=== PATIENT | female | born 1970 | race Two or more races ===

== ENCOUNTER 2017-06-03 13:32 | Inpatient (IN) | payer OTHER ==
[2017-06-03 15:33] VITALS: BMI 24.2
--- NOTE | 2017-06-03 18:04 | HP ---
COWS - Scale Resting Pulse: 1= [place] 81-100 Sweatin=Flushed/Facial Moisture Restless Observation: 5= Unable to Sit Still Pupil Size: 2= Moderately Dilated Bone or Joint Aches: 1= Mild Discomfort Runny Nose/ Eye Tearin= Nasal Congestion GI Upset > 30mins: 1= Stomach Cramp Tremor Observation: 1= Tremor [place], Not Seen Yawning Observation: 1= 1-2x During Session Anxiety or Irritability: 1=Feels Anxious/Irritable Goose Flesh Skin: 0=Smooth Skin COWS Score: 16 Admission ROS BHS - HPI Chief Complaint: "I need to detox from Heroin, am just so tired of it" Allergies/Adverse Reactions: Allergies Allergy/AdvReac Type Severity Reaction Status Date / Time Penicillins Allergy Severe Swelling Verified 06/03/17 15:33 History of Present Illness: 46 y/o female with a four year history of heroin abuse presents here for detox. Pt states she started to use four years ago due to separation from her .Pt states she used to snort, then shoots it and now sniffs heroin. Denies any sober period. Admits to prior suicidal attempt, denies current ideation or attempt. Hx of HTN, saline breast enlargement (1992), gall bladder removal (1999). Pt appears somnolent but arouses to questions asked, admits to using heroin while waiting. Exam Limitations: Clinical Condition (admits to siffing cocaine while waiting to be seen), Intoxication - Ebola screening Have you traveled outside of the country in the last 21 days: No (N) Have you had contact with anyone from an Ebola affected area: No Have you been sick,other than usual withdrawal symptoms: No Do you have a fever: No - Review of Systems Constitutional: Chills, Changes in sleep EENT: reports: Blurred Vision, Other (dry eyes) Respiratory: reports: No Symptoms reported Cardiac: reports: No Symptoms Reported GI: reports: Abdominal Distended (Non tender) : reports: No Symptoms Reported Musculoskeletal: reports: No Symptoms Reported Integumentary: reports: Other (track arana to L hand, L Ac - non infected) Neuro: reports: No Symptoms reported Endocrine: reports: No Symptoms Reported Hematology: reports: No Symptoms Reported Psychiatric: reports: Depressed Other Systems: Reviewed and Negative Patient History - Patient Medical History Hx Anemia: No Hx Asthma: Yes Hx Chronic Obstructive Pulmonary Disease (COPD): No Hx Cancer: No Hx Cardiac Disorders: No Hx Congestive Heart Failure: No Hx Hypertension: Yes (not on meds.) Hx Hypercholesterolemia: No Hx Pacemaker: No HX Cerebrovascular Accident: No Hx Seizures: No Hx Dementia: No Hx Diabetes: No Hx Gastrointestinal Disorders: No Hx Liver Disease: No Hx Genitourinary Disorders: No Hx Sexually Transmitted Disorders: No Hx Renal Disease (ESRD): No Hx Thyroid Disease: No Hx Human Immunodeficiency Virus (HIV): No Hx Hepatitis C: No Hx Depression: Yes Hx Suicide Attempt: Yes (Tried to overdose in 2014) Hx Bipolar Disorder: No Hx Schizophrenia: No - Patient Surgical History Past Surgical History: Yes Hx Neurologic Surgery: No Hx Cataract Extraction: No Hx Cardiac Surgery: No Hx Lung Surgery: No Hx Breast Surgery: Yes (breast augmentation) Hx Breast Biopsy: No Hx Abdominal Surgery: No Hx Appendectomy: No Hx Cholecystectomy: Yes Hx Genitourinary Surgery: No Hx Section: No Hx Orthopedic Surgery: No Hx Hysterectomy: No Anesthesia Reaction: No - PPD History Previous Implant?: Yes Documented Results: Negative w/proof Implanted On Prior R Admission?: Yes Date: 11/04/15 PPD to be Administered?: Yes - Reproductive History Last Menstrual Period: 04/09/17 Patient : No - Smoking Cessation Smoking history: Current every day smoker Have you smoked in the past 12 months: Yes Aproximately how many cigarettes per day: 5 Hx Chewing Tobacco Use: No Initiated information on smoking cessation: Yes 'Breaking Loose' booklet given: 06/03/17 - Substance & Tx. History Hx Alcohol Use: Yes (social drinker) Hx Substance Use: Yes - Substances Abused Heroin Route: Inhalation Frequency: Daily Amount used: 10 bags Age of first use: 42 Date of Last Use: 06/03/17 Cocaine Route: Inhalation Frequency: 3-6 times per week Amount used: 1 gram Age of first use: 19 Date of Last Use: 05/31/17 Alprazolam (Xanax) Route: Oral Frequency: Daily Amount used: 4 or 5 tabs Age of first use: 45 Date of Last Use: 06/02/17 Family Disease History - Family Disease History Family Disease History: Diabetes: Father, Respiratory: Grandparent (asthma), Mother (asthma), Son (asthma) Admission Physical Exam BHS - Vital Signs Vital Signs: Vital Signs - 24 hr 06/03/17 15:31 Temperature 97 F L Pulse Rate 82 Respiratory 20 Rate Blood Pressure 132/84 - Physical General Appearance: Yes: Mild Distress, Moderate Distress, Other (lethargic) HEENTM: Yes: Nasal Congestion Respiratory: Yes: Chest Non-Tender, Lungs Clear, No Accessory Muscle Use Neck: Yes: Within Normal Limits Breast: Yes: Breast Exam Deferred Cardiology: Yes: Regular Rate, S1, S2 Abdominal: Yes: Non Tender, Soft, Distended Genitourinary: Yes: Within Normal Limits Back: Yes: Within Normal Limits Musculoskeletal: Yes: Within Normal Limits Extremities: Yes: Normal Capillary Refill Neurological: Yes: Within Normal Limits Integumentary: Yes: Normal Color, Dry, Warm Lymphatic: Yes: Within Normal Limits - Diagnostic (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 Current Visit: Yes Status: Acute (2) Sedative hypnotic or anxiolytic dependence Current Visit: Yes Status: Acute (3) Opioid dependence with uncomplicated intoxication Current Visit: Yes Status: Acute (4) Nicotine dependence Current Visit: No Status: Chronic Qualifiers: Nicotine product type: cigarettes Substance use status: uncomplicated Qualified Code(s): F17.210 - Nicotine dependence, cigarettes, uncomplicated (5) Cocaine dependence Current Visit: Yes Status: Acute (6) Asthma Current Visit: No Status: Chronic Qualifiers: Asthma severity: mild persistent Asthma complication type: with status asthmaticus Qualified Code(s): J45.32 - Mild persistent asthma with status asthmaticus Cleared for Admission [facility] - Detox or Rehab [facility] Level of Care: Medically Managed Detox Regimen/Protocol: Methadone [facility] Breath Alcohol Content Breath Alcohol Content: 0 Urine Pregancy Test - Result Urine Test Results: Negative- NO Line Present Urine Drug Screen - Results Drug Screen Negative: No Urine Drug Screen Results: ALEXANDER-Cocaine, OPI-Opiates, AMP-Amphetamines, MET- Methamphetamine, BZO-Benzodiazepines, OXY-Oxycodone
[2017-06-03] MEDS ORDERED: MAGNESIUM HYDROX 2400MG/30ML ORAL SUSPENSION 30 ML CUP PO PRN (18:46)
[2017-06-03] MEDS ORDERED: hydrOXYzine PAMOATE 50 MG CAPSULE (FP) PO PRN (18:46)
[2017-06-03] MEDS ORDERED: guaiFENesin/D-METHORPHAN HB 10 ML UNIT-DOSE CUPS PO PRN (18:46)
[2017-06-03] MEDS ORDERED: P-EPHED 60MG/TRIPROLIDI 2.5MG TABLET PO PRN (18:46)
[2017-06-03] MEDS ORDERED: IBUPROFEN 400 MG TABLET (FP) PO PRN (18:46)
[2017-06-03] MEDS ORDERED: MAGNESIUM CITRATE 300 ML BOTTLE PO PRN (18:46)
[2017-06-03] MEDS ORDERED: NICOTINE POLACRILEX 2 MG GUM BUC PRN (18:46)
[2017-06-03] MEDS ORDERED: MAG HYDROX/AL HYDROX/SIMETH 30 ML UNIT-DOSE CUP PO PRN (18:46)
[2017-06-03] MEDS ORDERED: METHADONE HCL 10 MG TABLET (FOR DETOX USE ONLY) PO ONE ×2 (18:46→23:00)
[2017-06-03] MEDS ORDERED: MENTHOL/PHENOL 1 EACH UD MM PRN (18:46)
[2017-06-03] MEDS ORDERED: LOPERAMIDE HCL 2 MG CAPSULE PO PRN (18:46)
[2017-06-03] MEDS ORDERED: ACETAMINOPHEN 325 MG TABLET (FP) PO PRN (18:46)
[2017-06-03] MEDS: diazePAM 5 MG TABLET PO PRN (19:59)
[2017-06-03] MEDS: NICOTINE 14 MG/24 HOURS TOPICAL PATCH TD SCH (20:00)
[2017-06-03] MEDS: THIAMINE HCL 100 MG TABLET (FP) PO SCH (22:50)
[2017-06-04] MEDS: diazePAM 5 MG TABLET PO PRN ×3 (01:24→22:54)
[2017-06-04 02:06] LABS: URINE APPEARANCE SLCLOUDY; URINE BILIRUBIN NEGATIVE (NEGATIVE); URINE BLOOD NEGATIVE (NEGATIVE); URINE COLOR DKYELLOW; URINE GLUCOSE (UA) NEGATIVE (NEGATIVE); URINE KETONE NEGATIVE (NEGATIVE); URINE LEUK ESTERASE TRACE (NEGATIVE); URINE NITRITE NEGATIVE (NEGATIVE); URINE PROTEIN NEGATIVE (NEGATIVE)
[2017-06-04 02:23] LABS: CALCIUM OXALATE CRYSTALS MODERATE /hpf (NONE SEEN); EPI CELLS MODERATE /HPF (FEW); URINE BACTERIA MODERATE /hpf (NONE SEEN); URINE HYALINE CAST 1 /lpf; URINE MUCUS MODERATE
[2017-06-04 09:57] LABS: HEMATOCRIT 42.4 % (32.4-45.2); HEMOGLOBIN 13.5 GM/dL (10.7-15.3); MCH 27.8 pg (25.7-33.7); MCHC 31.8 g/dl (32.0-36.0); MEAN CELL VOLUME 87.3 fl (80-96); MEAN PLT VOLUME 8.8 fl (7.5-11.1); PLATELET COUNT 244 K/MM3 (134-434); RBC 4.85 M/mm3 (3.60-5.2); RDW 15.7 % (11.6-15.6); WHITE BLOOD COUNT 4.9 K/mm3 (4.0-10.0)
[2017-06-04] MEDS ORDERED: METHADONE HCL 10 MG TABLET (FOR DETOX USE ONLY) PO ONE (10:00)
[2017-06-04 10:03] LABS: ALBUMIN 3.2 g/dl (3.4-5.0); ANION GAP 3 (8-16); BLOOD UREA NITROGEN 15 mg/dL (7-18); CALCIUM 8.4 mg/dL (8.5-10.1); CHLORIDE 103 mmol/L (98-107); CO2 34 mmol/L (21-32); CREATININE 0.8 mg/dL (0.55-1.02); GLUCOSE,RANDOM 106 mg/dL (74-106); POTASSIUM 4.2 mmol/L (3.5-5.1); SGOT/AST 80 U/L (15-37); SGPT/ALT 124 U/L (12-78); SODIUM 140 mmol/L (136-145); TOT PROT 6.6 g/dl (6.4-8.2)
[2017-06-04 10:05] LABS: ALK PHOS 167 U/L (45-117); BILIRUBIN,TOTAL 0.5 mg/dL (0.2-1.0)
--- NOTE | 2017-06-04 10:31 | PN ---
BHS COWS - Scale Resting Pulse: 0= [place] 80 or Below Sweatin= Chills/Flushing Restless Observation: 1= Difficult to Sit Still Pupil Size: 0= Normal to Room Light Bone or Joint Aches: 2= Severe Diffuse Aches Runny Nose/ Eye Tearin= Nasal Congestion GI Upset > 30mins: 1= Stomach Cramp Tremor Observation of Outstretched Hands: 2= Slight Tremor Visible Yawning Observation: 2= >3x During Session Anxiety or Irritability: 2=Irritable/Anxious Goose Flesh Skin: 3=Piloerection COWS Score: 15 BHS Progress Note (SOAP) Subjective: joint aches stuffy nose GI distress anxiety tremor restlessness irritable Objective: 06/04/17 10:29 Vital Signs Temperature 96.8 F L 06/04/17 06:00 Pulse Rate 60 06/04/17 06:00 Respiratory Rate 18 06/04/17 06:00 Blood Pressure 120/71 06/04/17 06:00 O2 Sat by Pulse Oximetry (%) Laboratory Last Values WBC 4.9 K/mm3 (4.0-10.0) 06/04/17 07:20 RBC 4.85 M/mm3 (3.60-5.2) 06/04/17 07:20 Hgb 13.5 GM/dL (10.7-15.3) D 06/04/17 07:20 Hct 42.4 % (32.4-45.2) 06/04/17 07:20 MCV 87.3 fl (80-96) 06/04/17 07:20 MCH 27.8 pg (25.7-33.7) 06/04/17 07:20 MCHC 31.8 g/dl (32.0-36.0) L 06/04/17 07:20 RDW 15.7 % (11.6-15.6) H 06/04/17 07:20 Plt Count 244 K/MM3 (134-434) 06/04/17 07:20 MPV 8.8 fl (7.5-11.1) 06/04/17 07:20 Sodium 140 mmol/L (136-145) 06/04/17 07:20 Potassium 4.2 mmol/L (3.5-5.1) 06/04/17 07:20 Chloride 103 mmol/L (98-107) 06/04/17 07:20 Carbon Dioxide 34 mmol/L (21-32) H 06/04/17 07:20 Anion Gap 3 (8-16) L 06/04/17 07:20 BUN 15 mg/dL (7-18) 06/04/17 07:20 Creatinine 0.8 mg/dL (0.55-1.02) 06/04/17 07:20 Creat Clearance w eGFR > 60 (>60) 06/04/17 07:20 Random Glucose 106 mg/dL (74-106) 06/04/17 07:20 Calcium 8.4 mg/dL (8.5-10.1) L 06/04/17 07:20 Total Bilirubin 0.5 mg/dL (0.2-1.0) D 06/04/17 07:20 AST 80 U/L (15-37) H 06/04/17 07:20 ALT 124 U/L (12-78) H 06/04/17 07:20 Alkaline Phosphatase 167 U/L (45-117) H 06/04/17 07:20 Total Protein 6.6 g/dl (6.4-8.2) 06/04/17 07:20 Albumin 3.2 g/dl (3.4-5.0) L 06/04/17 07:20 Urine Color Dkyellow 06/03/17 22:39 Urine Appearance Slcloudy 06/03/17 22:39 Urine pH 5.0 (5.0-8.0) 06/03/17 22:39 Ur Specific [place] 1.028 (1.001-1.035) 06/03/17 22:39 Urine Protein Negative (NEGATIVE) 06/03/17 22:39 Urine Glucose (UA) Negative (NEGATIVE) 06/03/17 22:39 Urine Ketones Negative (NEGATIVE) 06/03/17 22:39 Urine Blood Negative (NEGATIVE) 06/03/17 22:39 Urine Nitrite Negative (NEGATIVE) 06/03/17 22:39 Urine Bilirubin Negative (NEGATIVE) 06/03/17 22:39 Urine Urobilinogen 2.0 mg/dL (0.2-1.0) H 06/03/17 22:39 Ur Leukocyte Esterase Trace (NEGATIVE) 06/03/17 22:39 Urine WBC (Auto) 4 /hpf (3-5) 06/03/17 22:39 Urine RBC (Auto) 2 /hpf (0-3) 06/03/17 22:39 Ur Epithelial Cells Moderate /HPF (FEW) 06/03/17 22:39 Calcium Oxalate Crystal Moderate /hpf (NONE SEEN) 06/03/17 22:39 Urine Bacteria Moderate /hpf (NONE SEEN) 06/03/17 22:39 Hyaline Casts 1 /lpf 06/03/17 22:39 Urine Mucus Moderate 06/03/17 22:39 HIV 1&2 Antibody Screen Negative 06/04/17 07:20 HIV P24 Antigen Negative 06/04/17 07:20 lab noted Assessment: 06/04/17 10:31 withdrawal sx Plan: continue detox
--- NOTE | 2017-06-04 11:03 | CONSULT ---
[facility] Psychiatric Consult - Data Date of interview: 06/04/17 Admission source: Self-referred Identifying data: Ms Meier is a 46 years old female, mother of 5 children, unemployed on food stamp, homeless seeking detox treatment for heroin, cocaine and xanax Substance Abuse History: Reports history of heroin, cocaine and xanax use. Refer to addiction counselor's note for further information Medical History: Significant for bronchial asthma, hypertension and history of surgery for breast implant and removal of galldbladder. Smokes 5 cigarettes daily Psychiatric History: Patient is a poor historian and inconsistent in providing informatio. Told assembly instructions writer that she was diagnosed with Schizophrenia 2 years ago while incarcerated at [facility]. Reports she was on a mental wards there. Claims she was prescribed medicaton but has no recollection of the name. Reports that she stopped taking medication soon after release from [facility]. During a previous admission in this facility in October 2015, she told the psychiatrist that she was diagnosed with Schizoprenia 2 years ago(2013) and had one psychiatric admission to [facility]. Told assembly instructions writer about a history of suicidal attempt by taking pills in 2014. At present reports feeling depressed and sleeping poorly Physical/Sexual Abuse/Trauma History: Denies history of emotional, physical or sexual abuse as well as DV relationship Additional Comment: Reports history of a few arrests including 2 felony convictions. Denies being on parole/probation at present Mental Status Exam - Mental Status Exam Alert and Oriented to: Place, Person Cognitive Function: Fair Patient Appearance: Well Groomed Mood: Depressed Affect: Appropriate Patient Behavior: Cooperative Speech Pattern: Clear Voice Loudness: Normal Thought Process: Intact, Goal Oriented Thought Disorder: Not Present Hallucinations: Denies Suicidal Ideation: Denies Homicidal Ideation: Denies Insight/Judgement: Poor Sleep: Poorly Appetite: Fair Muscle strength/Tone: Normal Gait/Station: Normal Psychiatric Findings - Problem List ([place] 1, 2,3) (1) Schizophrenia Current Visit: No Status: Chronic (2) Substance induced mood disorder Current Visit: Yes Status: Acute (3) Substance-induced sleep disorder Current Visit: Yes Status: Acute (4) Opioid dependence with uncomplicated intoxication Current Visit: Yes Status: Acute (5) Cocaine dependence Current Visit: Yes Status: Acute (6) Sedative hypnotic or anxiolytic dependence Current Visit: Yes Status: Acute (7) Nicotine dependence Current Visit: No Status: Chronic Qualifiers: Nicotine product type: cigarettes Substance use status: uncomplicated Qualified Code(s): F17.210 - Nicotine dependence, cigarettes, uncomplicated (8) Asthma Current Visit: No Status: Chronic Qualifiers: Asthma severity: mild persistent Asthma complication type: with status asthmaticus (9) HTN (hypertension) Current Visit: Yes Status: Acute - Initial Treatment Plan Initial Treatment Plan: 1) Start Seroquel 100 mg po HS. Benefit vs Risks of medication discussed with patient and he agreed to try it. 2) Continue inpatient detoxification
[2017-06-04] MEDS: PRENATAL VITAMINS W/ FOLIC ACID TABLET (FP) PO SCH (11:08)
[2017-06-04] MEDS: NICOTINE 14 MG/24 HOURS TOPICAL PATCH TD SCH (11:09)
--- NOTE | 2017-06-04 18:46 | EKG ---
Test Reason : Blood Pressure : / mmHG Vent. Rate : 075 BPM Atrial Rate : 075 BPM P-R Int : 136 ms QRS Dur : 082 ms QT Int : 404 ms P-R-T Axes : 034 074 058 degrees QTc Int : 451 ms NORMAL SINUS RHYTHM NORMAL ECG NO PREVIOUS ECGS AVAILABLE Confirmed by MD CHRISTELLE, MARIA DEL CARMEN ([id number]) on 06/04/2017 6:46:28 PM Referred By: Confirmed By:MARIA DEL CARMEN BOURGEOIS MD
[2017-06-04] MEDS: QUEtiapine FUMARATE 100 MG TABLET (FP) PO SCH (22:54)
[2017-06-04] MEDS: THIAMINE HCL 100 MG TABLET (FP) PO SCH (22:54)
--- NOTE | 2017-06-05 09:39 | PN ---
BHS COWS - Scale Resting Pulse: 0= [place] 80 or Below Sweatin= Chills/Flushing Restless Observation: 3= Extraneous Movement Pupil Size: 0= Normal to Room Light Bone or Joint Aches: 2= Severe Diffuse Aches Runny Nose/ Eye Tearin= Nasal Congestion GI Upset > 30mins: 1= Stomach Cramp Tremor Observation of Outstretched Hands: 2= Slight Tremor Visible Yawning Observation: 0= None Anxiety or Irritability: 2=Irritable/Anxious Goose Flesh Skin: 0=Smooth Skin COWS Score: 12 BHS Progress Note (SOAP) Subjective: sweat tremor restlessness irritable mild GI upset Objective: 06/05/17 09:38 Vital Signs Temperature 97.0 F L 06/05/17 06:27 Pulse Rate 60 06/05/17 06:27 Respiratory Rate 16 06/05/17 06:27 Blood Pressure 90/68 06/05/17 06:27 O2 Sat by Pulse Oximetry (%) Laboratory Last Values WBC 4.9 K/mm3 (4.0-10.0) 06/04/17 07:20 RBC 4.85 M/mm3 (3.60-5.2) 06/04/17 07:20 Hgb 13.5 GM/dL (10.7-15.3) D 06/04/17 07:20 Hct 42.4 % (32.4-45.2) 06/04/17 07:20 MCV 87.3 fl (80-96) 06/04/17 07:20 MCH 27.8 pg (25.7-33.7) 06/04/17 07:20 MCHC 31.8 g/dl (32.0-36.0) L 06/04/17 07:20 RDW 15.7 % (11.6-15.6) H 06/04/17 07:20 Plt Count 244 K/MM3 (134-434) 06/04/17 07:20 MPV 8.8 fl (7.5-11.1) 06/04/17 07:20 Sodium 140 mmol/L (136-145) 06/04/17 07:20 Potassium 4.2 mmol/L (3.5-5.1) 06/04/17 07:20 Chloride 103 mmol/L (98-107) 06/04/17 07:20 Carbon Dioxide 34 mmol/L (21-32) H 06/04/17 07:20 Anion Gap 3 (8-16) L 06/04/17 07:20 BUN 15 mg/dL (7-18) 06/04/17 07:20 Creatinine 0.8 mg/dL (0.55-1.02) 06/04/17 07:20 Creat Clearance w eGFR > 60 (>60) 06/04/17 07:20 Random Glucose 106 mg/dL (74-106) 06/04/17 07:20 Calcium 8.4 mg/dL (8.5-10.1) L 06/04/17 07:20 Total Bilirubin 0.5 mg/dL (0.2-1.0) D 06/04/17 07:20 AST 80 U/L (15-37) H 06/04/17 07:20 ALT 124 U/L (12-78) H 06/04/17 07:20 Alkaline Phosphatase 167 U/L (45-117) H 06/04/17 07:20 Total Protein 6.6 g/dl (6.4-8.2) 06/04/17 07:20 Albumin 3.2 g/dl (3.4-5.0) L 06/04/17 07:20 Urine Color Dkyellow 06/03/17 22:39 Urine Appearance Slcloudy 06/03/17 22:39 Urine pH 5.0 (5.0-8.0) 06/03/17 22:39 Ur Specific [place] 1.028 (1.001-1.035) 06/03/17 22:39 Urine Protein Negative (NEGATIVE) 06/03/17 22:39 Urine Glucose (UA) Negative (NEGATIVE) 06/03/17 22:39 Urine Ketones Negative (NEGATIVE) 06/03/17 22:39 Urine Blood Negative (NEGATIVE) 06/03/17 22:39 Urine Nitrite Negative (NEGATIVE) 06/03/17 22:39 Urine Bilirubin Negative (NEGATIVE) 06/03/17 22:39 Urine Urobilinogen 2.0 mg/dL (0.2-1.0) H 06/03/17 22:39 Ur Leukocyte Esterase Trace (NEGATIVE) 06/03/17 22:39 Urine WBC (Auto) 4 /hpf (3-5) 06/03/17 22:39 Urine RBC (Auto) 2 /hpf (0-3) 06/03/17 22:39 Ur Epithelial Cells Moderate /HPF (FEW) 06/03/17 22:39 Calcium Oxalate Crystal Moderate /hpf (NONE SEEN) 06/03/17 22:39 Urine Bacteria Moderate /hpf (NONE SEEN) 06/03/17 22:39 Hyaline Casts 1 /lpf 06/03/17 22:39 Urine Mucus Moderate 06/03/17 22:39 RPR Titer Nonreactive (NONREACTIVE) 06/04/17 07:20 HIV 1&2 Antibody Screen Negative 06/04/17 07:20 HIV P24 Antigen Negative 06/04/17 07:20 lab noted Assessment: 06/05/17 09:39 withdrawal sx Plan: continue detox
[2017-06-05] MEDS ORDERED: METHADONE HCL 5 MG TABLET (FOR DETOX USE ONLY) PO ONE (10:00)
[2017-06-05] MEDS: PRENATAL VITAMINS W/ FOLIC ACID TABLET (FP) PO SCH (10:58)
[2017-06-05] MEDS: diazePAM 5 MG TABLET PO PRN ×3 (10:58→22:26)
[2017-06-05] MEDS: NICOTINE 14 MG/24 HOURS TOPICAL PATCH TD SCH (10:59)
[2017-06-05] MEDS: THIAMINE HCL 100 MG TABLET (FP) PO SCH (22:26)
[2017-06-05] MEDS: QUEtiapine FUMARATE 100 MG TABLET (FP) PO SCH (22:26)
[2017-06-06] MEDS ORDERED: METHADONE HCL 5 MG TABLET (FOR DETOX USE ONLY) PO ONE (10:00)
[2017-06-06 10:09] VITALS: BP 126/76; PULSE 74; TEMP 96.4
[2017-06-06] MEDS: PRENATAL VITAMINS W/ FOLIC ACID TABLET (FP) PO SCH (10:51)
[2017-06-06] MEDS: diazePAM 5 MG TABLET PO PRN (10:51)
[2017-06-06] MEDS: NICOTINE 14 MG/24 HOURS TOPICAL PATCH TD SCH (10:53)
--- NOTE | 2017-06-06 12:39 | DS ---
[facility] Detox Discharge Summary Admission Date: 06/03/17 Discharge Date: 06/06/17 - History Present History: Alcohol Dependence, Sedative Dependence Additional Comments: patient insists to terminate detox regimen alert oriented x 3 denies pain denies suicidal homocidal ideation encourage to attend community support meetings for the benefits of sobriety - Physical Exam Results Vital Signs: Vital Signs Temperature 96.4 F L 06/06/17 10:09 Pulse Rate 74 06/06/17 10:09 Respiratory Rate 18 06/06/17 10:09 Blood Pressure 126/76 06/06/17 10:09 O2 Sat by Pulse Oximetry (%) Pertinent Admission Physical Exam Findings: withdrawal sx Laboratory Last Values WBC 4.9 K/mm3 (4.0-10.0) 06/04/17 07:20 RBC 4.85 M/mm3 (3.60-5.2) 06/04/17 07:20 Hgb 13.5 GM/dL (10.7-15.3) D 06/04/17 07:20 Hct 42.4 % (32.4-45.2) 06/04/17 07:20 MCV 87.3 fl (80-96) 06/04/17 07:20 MCH 27.8 pg (25.7-33.7) 06/04/17 07:20 MCHC 31.8 g/dl (32.0-36.0) L 06/04/17 07:20 RDW 15.7 % (11.6-15.6) H 06/04/17 07:20 Plt Count 244 K/MM3 (134-434) 06/04/17 07:20 MPV 8.8 fl (7.5-11.1) 06/04/17 07:20 Sodium 140 mmol/L (136-145) 06/04/17 07:20 Potassium 4.2 mmol/L (3.5-5.1) 06/04/17 07:20 Chloride 103 mmol/L (98-107) 06/04/17 07:20 Carbon Dioxide 34 mmol/L (21-32) H 06/04/17 07:20 Anion Gap 3 (8-16) L 06/04/17 07:20 BUN 15 mg/dL (7-18) 06/04/17 07:20 Creatinine 0.8 mg/dL (0.55-1.02) 06/04/17 07:20 Creat Clearance w eGFR > 60 (>60) 06/04/17 07:20 Random Glucose 106 mg/dL (74-106) 06/04/17 07:20 Calcium 8.4 mg/dL (8.5-10.1) L 06/04/17 07:20 Total Bilirubin 0.5 mg/dL (0.2-1.0) D 06/04/17 07:20 AST 80 U/L (15-37) H 06/04/17 07:20 ALT 124 U/L (12-78) H 06/04/17 07:20 Alkaline Phosphatase 167 U/L (45-117) H 06/04/17 07:20 Total Protein 6.6 g/dl (6.4-8.2) 06/04/17 07:20 Albumin 3.2 g/dl (3.4-5.0) L 06/04/17 07:20 Urine Color Dkyellow 06/03/17 22:39 Urine Appearance Slcloudy 06/03/17 22:39 Urine pH 5.0 (5.0-8.0) 06/03/17 22:39 Ur Specific [place] 1.028 (1.001-1.035) 06/03/17 22:39 Urine Protein Negative (NEGATIVE) 06/03/17 22:39 Urine Glucose (UA) Negative (NEGATIVE) 06/03/17 22:39 Urine Ketones Negative (NEGATIVE) 06/03/17 22:39 Urine Blood Negative (NEGATIVE) 06/03/17 22:39 Urine Nitrite Negative (NEGATIVE) 06/03/17 22:39 Urine Bilirubin Negative (NEGATIVE) 06/03/17 22:39 Urine Urobilinogen 2.0 mg/dL (0.2-1.0) H 06/03/17 22:39 Ur Leukocyte Esterase Trace (NEGATIVE) 06/03/17 22:39 Urine WBC (Auto) 4 /hpf (3-5) 06/03/17 22:39 Urine RBC (Auto) 2 /hpf (0-3) 06/03/17 22:39 Ur Epithelial Cells Moderate /HPF (FEW) 06/03/17 22:39 Calcium Oxalate Crystal Moderate /hpf (NONE SEEN) 06/03/17 22:39 Urine Bacteria Moderate /hpf (NONE SEEN) 06/03/17 22:39 Hyaline Casts 1 /lpf 06/03/17 22:39 Urine Mucus Moderate 06/03/17 22:39 RPR Titer Nonreactive (NONREACTIVE) 06/04/17 07:20 HIV 1&2 Antibody Screen Negative 06/04/17 07:20 HIV P24 Antigen Negative 06/04/17 07:20 lab noted - Treatment Hospital Course: Detox Protocol Followed, Responded well - Medication Discharge Medications: Ambulatory Orders Quetiapine Fumarate [Seroquel] 100 mg PO HS #30 tablet 06/04/17 Albuterol Sulfate Inhaler - [Ventolin HFA Inhaler -] 2 inh PO Q4H PRN #1 inhaler 06/06/17 - Diagnosis (1) HTN (hypertension) Current Visit: Yes Status: Chronic Qualifiers: Hypertension type: essential hypertension Qualified Code(s): I10 - Essential (primary) hypertension (2) 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
[2017-06-07] MEDS ORDERED: METHADONE HCL 10 MG TABLET (FOR DETOX USE ONLY) PO ONE (10:00)
[2017-06-08] MEDS ORDERED: METHADONE HCL 5 MG TABLET (FOR DETOX USE ONLY) PO ONE (06:00)
== END 2017-06-06 12:23 | disposition left against medical advice (07) | DRG 770 ==
LOC: YASAS 13:32 → Y6N 15:41
PROVIDERS: ADMIT Internal Medicine; ATTEND Internal Medicine
PROC: HZ2ZZZZ Detoxification Services for Substance Abuse Treatment (ICD-10-PCS; principal; 2017-06-03)
DX: F11.20 Opioid dependence, uncomplicated (principal); F13.230 Sedative, hypnotic or anxiolytic dependence with withdrawal, uncomplicated; F10.230 Alcohol dependence with withdrawal, uncomplicated; F14.20 Cocaine dependence, uncomplicated; F19.24 Other psychoactive substance dependence with psychoactive substance-induced mood disorder; F19.282 Other psychoactive substance dependence with psychoactive substance-induced sleep disorder; F20.9 Schizophrenia, unspecified; I10 Essential (primary) hypertension; J45.21 Mild intermittent asthma with (acute) exacerbation; Z91.5 Personal history of self-harm; Z59.0 Homelessness
CPT/HCPCS: 36415; 80053; 81003; 81015; 85027; 86593; 87389; 93005; 93010

== ENCOUNTER 2018-07-23 17:36 | Inpatient (IN) | payer OTHER ==
[2018-07-23 19:15] VITALS: BMI 25.8
--- NOTE | 2018-07-23 20:04 | HP ---
COWS - Scale Resting Pulse: 1= [place] 81-100 Sweatin= Chills/Flushing Restless Observation: 0= Sits Still Pupil Size: 1= Pupils >than Normal Bone or Joint Aches: 1= Mild Discomfort Runny Nose/ Eye Tearin= Runny Nose/Eyes GI Upset > 30mins: 3= Vomiting/Diarrhea (vomit x 2) Tremor Observation: 0= None Yawning Observation: 1= 1-2x During Session Anxiety or Irritability: 2=Irritable/Anxious Goose Flesh Skin: 0=Smooth Skin COWS Score: 12 CIWA Score - Admission Criteria [facility]ASAS Guidelines: Admission for Medically Managed Detox: Requires at least one of the followin. CIWA greater than 12 2. Seizures within the past 24 hours 3. Delirium tremens within the past 24 hours 4. Hallucinations within the past 24 hours 5. Acute intervention needed for co occurring medical disorder 6. Acute intervention needed for co occurring psychiatric disorder 7. Severe withdrawal that cannot be handled at a lower level of care (continued vomiting, continued diarrhea, abnormal vital signs) requiring intravenous medication and/or fluids 8. Admission ROS [facility] Chief Complaint: heroin withdrawal symptoms Allergies/Adverse Reactions: Allergies Allergy/AdvReac Type Severity Reaction Status Date / Time Penicillins Allergy Severe Swelling Verified 07/23/18 19:03 History of Present Illness: 48 y/o female with hx of cocaine and heroin (IV) dependence presents here is for detox. Last detox [facility] May 2017. Reports no significant period of sobriety, reports was discharged from [facility] one month ago, reports was dailky dose of 200 mg qd. Hx of HTN, asthma, saline breast enlargement (1992), gall bladder removal (1999). Reports hx of anxiety treated out with xanax Denies any significant period of sobriety Denies SI/HI. Others' Prescriptions Patient Name: Nancie Meier Date: 1970 Address: [address] [place] [address] Sex: Female Rx Written Rx Dispensed Drug Quantity Days Supply Prescriber Name 02/24/2018 02/24/2018 acetaminophen-cod #3 tablet 20 5 Avery Kenny MD Exam Limitations: No Limitations - Review of Systems Constitutional: Chills, Weakness EENT: reports: Tearing, Other (runny nose) Respiratory: reports: No Symptoms reported GI: reports: Nausea, Poor Appetite, Poor Fluid Intake, Vomiting, Abdominal cramping : reports: No Symptoms Reported Musculoskeletal: reports: No Symptoms Reported Integumentary: reports: No Symptoms Reported Neuro: reports: Weakness Endocrine: reports: No Symptoms Reported Hematology: reports: No Symptoms Reported Psychiatric: reports: Orientated x3, Depressed Other Systems: Reviewed and Negative Patient History - Patient Medical History Hx Anemia: No Hx Asthma: Yes Hx Chronic Obstructive Pulmonary Disease (COPD): No Hx Cancer: No Hx Cardiac Disorders: No Hx Congestive Heart Failure: No Hx Hypertension: Yes (not on meds.) Hx Hypercholesterolemia: No Hx Pacemaker: No HX Cerebrovascular Accident: No Hx Seizures: No Hx Dementia: No Hx Diabetes: No Hx Gastrointestinal Disorders: No Hx Liver Disease: No Hx Genitourinary Disorders: No Hx Sexually Transmitted Disorders: No Hx Renal Disease (ESRD): No Hx Thyroid Disease: No Hx Human Immunodeficiency Virus (HIV): No Hx Hepatitis C: No Hx Depression: Yes Hx Suicide Attempt: Yes (Tried to overdose in 2014) Hx Bipolar Disorder: No Hx Schizophrenia: No - Patient Surgical History Past Surgical History: Yes Hx Neurologic Surgery: No Hx Cataract Extraction: No Hx Cardiac Surgery: No Hx Lung Surgery: No Hx Breast Surgery: Yes (breast augmentation) Hx Breast Biopsy: No Hx Abdominal Surgery: No Hx Appendectomy: No Hx Cholecystectomy: Yes Hx Genitourinary Surgery: No Hx Section: No Hx Orthopedic Surgery: No Hx Hysterectomy: No Anesthesia Reaction: No - PPD History Previous Implant?: No Documented Results: Negative w/proof Date: 06/05/17 PPD to be Administered?: Yes - Reproductive History Last Menstrual Period: 04/09/17 - Smoking Cessation Smoking history: Current every day smoker Have you smoked in the past 12 months: Yes Aproximately how many cigarettes per day: 5 Hx Chewing Tobacco Use: No Initiated information on smoking cessation: Yes 'Breaking Loose' booklet given: 07/23/18 - Substance & Tx. History Hx Alcohol Use: No Hx Substance Use: Yes Substance Use Type: Heroin Hx Substance Use Treatment: Yes (Last detox [facility] May 2017) - Substances abused Heroin Substance route: Injection Frequency: Daily Amount used: 3 BUNDLES Age of first use: 46 Date of last use: 07/23/18 Family Disease History - Family Disease History Family Disease History: Diabetes: Father, Respiratory: Grandparent (asthma), Mother (asthma), Son (asthma) Admission Physical Exam [facility] - Vital Signs Vital Signs: Vital Signs - 24 hr 07/23/18 19:05 Temperature 97.2 F L Pulse Rate 83 Respiratory 18 Rate Blood Pressure 94/60 - Physical General Appearance: Yes: Disheveled, Mild Distress, Irritable, Other (salmonent but arousable) HEENTM: Yes: EOMI, Hearing grossly Normal, Normal ENT Inspection, Normocephalic , Normal Voice, ADDIS, Pharynx Normal, Tm's normal, Rhinorrhea Respiratory: Yes: Chest Non-Tender, Lungs Clear, Normal Breath Sounds, No Respiratory Distress, No Accessory Muscle Use Neck: Yes: No masses,lesions,Nodules, Trachea in good position Breast: Yes: Breast Exam Deferred Cardiology: Yes: Regular Rhythm, Regular Rate Abdominal: Yes: Normal Bowel Sounds, Non Tender, Soft Genitourinary: Yes: Within Normal Limits Back: Yes: Normal Inspection Musculoskeletal: Yes: full range of Motion, Gait Steady, Pelvis Stable, Back pain Extremities: Yes: Normal Capillary Refill, Normal Inspection, Normal Range of Motion, Non-Tender 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 intact, Fully Oriented, Alert, Motor Strength 5/5, Depressed Affect Integumentary: Yes: Normal Color, Warm, Track Elizondo (bilateral anticubital fossa , no infection present, mild erythema present) Lymphatic: Yes: Within Normal Limits - Diagnostic (1) Opioid dependence with withdrawal Current Visit: Yes Status: Acute (2) Asthma Current Visit: Yes Status: Chronic Qualifiers: Asthma severity: mild Asthma complication type: with status asthmaticus (3) HTN (hypertension) Current Visit: Yes Status: Chronic Qualifiers: Hypertension type: essential hypertension Qualified Code(s): I10 - Essential (primary) hypertension (4) Nicotine dependence Current Visit: Yes Status: Chronic Qualifiers: Nicotine product type: cigarettes Substance use status: uncomplicated Qualified Code(s): F17.210 - Nicotine dependence, cigarettes, uncomplicated Cleared for Admission [facility] - Detox or Rehab [facility] Level of Care: Medically Managed Detox Regimen/Protocol: Methadone Breathalyzer - Breathalyzer Breathalyzer: 0 POC Urine test - Test device test lot number: [id number] Expiration date: 12/09/19 - Control test control: Yes - Result Urine Test Results: Negative - NO line present Urine Drug Screen - Test Device Lot number: [id number] Expiration date: 03/09/20 - Control Is test valid?: Yes - Results Drug screen NEGATIVE: No Urine drug screen results: ALEXANDER-Cocaine, FEN-Fentanyl, MOP-Opiates, MTD-Methadone , BZO-Benzodiazepines Inpatient Rehab Admission - Rehab Decision to Admit Inpatient rehab admission?: No
[2018-07-23] MEDS ORDERED: ALBUTEROL SO4 8 GM HFA INHALER IH PRN (20:08)
[2018-07-23] MEDS ORDERED: ACETAMINOPHEN 325 MG TABLET (FP) PO PRN ×2 (20:13)
[2018-07-23] MEDS ORDERED: BISMUTH SUBSALICYLATE 524 MG/30 ML UD PO PRN (20:13)
[2018-07-23] MEDS ORDERED: NICOTINE POLACRILEX 2 MG GUM BUC PRN (20:13)
[2018-07-23] MEDS ORDERED: IBUPROFEN 400 MG TABLET (FP) PO PRN (20:13)
[2018-07-23] MEDS ORDERED: MAG HYDROX/AL HYDROX/SIMETH 30 ML UNIT-DOSE CUP PO PRN (20:13)
[2018-07-23] MEDS ORDERED: MAGNESIUM CITRATE 300 ML BOTTLE PO PRN (20:13)
[2018-07-23] MEDS ORDERED: MAGNESIUM HYDROX 2400MG/30ML ORAL SUSPENSION 30 ML CUP PO PRN (20:13)
[2018-07-23] MEDS ORDERED: MENTHOL/PHENOL 1 EACH UD MM PRN (20:13)
[2018-07-23] MEDS ORDERED: METHOCARBAMOL 500 MG TABLET PO PRN (20:13)
[2018-07-23] MEDS ORDERED: cloNIDine HCL 0.1 MG TABLET PO PRN (20:13)
[2018-07-23] MEDS ORDERED: METHADONE HCL 10 MG TABLET (FOR DETOX USE ONLY) PO ONE ×2 (21:00→23:00)
[2018-07-23] MEDS: THIAMINE HCL 100 MG TABLET (FP) PO SCH (21:39)
[2018-07-23] MEDS: MELATONIN 5 MG TABLETS PO PRN (21:44)
[2018-07-24] MEDS ORDERED: METHADONE HCL 10 MG TABLET (FOR DETOX USE ONLY) PO ONE (10:00)
[2018-07-24] MEDS: PRENATAL VITAMINS W/ FOLIC ACID TABLET (FP) PO SCH (10:08)
[2018-07-24 10:09] LABS: ALBUMIN 2.8 g/dl (3.4-5.0); ALK PHOS 95 U/L (45-117); ANION GAP 2 MMOL/L (8-16); BILIRUBIN,TOTAL 0.3 mg/dL (0.2-1); BLOOD UREA NITROGEN 17 mg/dL (7-18); CALCIUM 8.6 mg/dL (8.5-10.1); CHLORIDE 107 mmol/L (98-107); CO2 30 mmol/L (21-32); CREATININE 0.7 mg/dL (0.55-1.3); GLUCOSE,RANDOM 81 mg/dL (74-106); POTASSIUM 4.3 mmol/L (3.5-5.1); SGOT/AST 16 U/L (15-37); SGPT/ALT 18 U/L (13-61); SODIUM 139 mmol/L (136-145); TOT PROT 6.5 g/dl (6.4-8.2)
[2018-07-24] MEDS: NICOTINE 14 MG/24 HOURS TOPICAL PATCH TD SCH (10:09)
[2018-07-24 10:14] LABS: HEMOGLOBIN 12.3 GM/dL (10.7-15.3); MCHC 33.2 g/dl (32.0-36.0); MEAN CELL VOLUME 87.3 fl (80-96); MEAN PLT VOLUME 8.6 fl (7.5-11.1); PLATELET COUNT 230 K/MM3 (134-434); RBC 4.23 M/mm3 (3.60-5.2); RDW 15.3 % (11.6-15.6); WHITE BLOOD COUNT 5.6 K/mm3 (4.0-10.0)
--- NOTE | 2018-07-24 10:55 | EKG ---
Test Reason : Blood Pressure : / mmHG Vent. Rate : 074 BPM Atrial Rate : 074 BPM P-R Int : 136 ms QRS Dur : 092 ms QT Int : 434 ms P-R-T Axes : 024 064 039 degrees QTc Int : 481 ms NORMAL SINUS RHYTHM PROLONGED QT ABNORMAL ECG WHEN COMPARED WITH ECG OF 03-JUN-2017 19:15, NO SIGNIFICANT CHANGE WAS FOUND Confirmed by MD Nolberto, Lucas ([id number]) on 07/24/2018 10:55:22 AM Referred By: Confirmed By:Lucas Arvizu MD
--- NOTE | 2018-07-24 13:11 | CONSULT ---
[facility] Psychiatric Consult - Data Date of interview: 07/24/18 Admission source: [facility] Identifying data: Third admission to [facility] for this 48 y/o female self-referred for detoxification treatment (heroin, cocaine). Examined at [address] [place] [address]. Patient is , a mother of five, domiciled, unemployed and supported on alimony payments (self-report). Substance Abuse History: Confirmed by the patient in this interview. Smoking history: Current every day smoker. Have you smoked in the past 12 months: Yes. Aproximately how many cigarettes per day: 5. Hx Chewing Tobacco Use: No. Initiated information on smoking cessation: Yes. 'Breaking Loose' booklet given : 07/23/18. - Substance & Tx. History. Hx Alcohol Use: No. Hx Substance Use: Yes. Substance Use Type: Heroin. Hx Substance Use Treatment: Yes (Last detox [facility] May 2017). - Substances abused. Heroin. Substance route: Injection. Frequency: Daily. Amount used: 3 BUNDLES. Age of first use: 46. Date of last use: 07/23/18 Medical History: Remarkable for bronchial asthma, hypertension, breast implant and history of cholecystectomy. Psychiatric History: In this interview, the patient denies history of psychiatric hospitalizations, psychiatric OPD care and prior exposure to psychotropic medications. Ms Meier declares that substance use is " my only problem ". She is an unreliable historian as evidenced by records indicating past diagnosis of schizophrenia + psychotropic medications + previous psychiatric hopspitalization at [facility]. One suicide attempt via overdose with medications figure in the records (denied by the patient in this interview). Physical/Sexual Abuse/Trauma History: Patient denies. Additional Comment: Urine drug screen results: ALEXANDER-Cocaine, FEN-Fentanyl, MOP- Opiates, MTD-Methadone, BZO-Benzodiazepines. Noted. Mental Status Exam - Mental Status Exam Alert and Oriented to: Time, Place, Person Cognitive Function: Good Patient Appearance: Well Groomed Mood: Withdrawn, Hopeful Affect: Appropriate, Normal Range Patient Behavior: Fatigued, Cooperative Speech Pattern: Clear, Appropriate Voice Loudness: Normal Thought Process: Goal Oriented Thought Disorder: Not Present Hallucinations: Denies Suicidal Ideation: Denies Homicidal Ideation: Denies Insight/Judgement: Poor Sleep: Well Appetite: Good Muscle strength/Tone: Normal Gait/Station: Normal Psychiatric Findings - Problem List ([place] 1, 2,3) (1) Opioid dependence with withdrawal Current Visit: Yes Status: Acute (2) Cocaine dependence Current Visit: Yes Status: Acute (3) Nicotine dependence Current Visit: Yes Status: Chronic Qualifiers: Nicotine product type: cigarettes Substance use status: uncomplicated Qualified Code(s): F17.210 - Nicotine dependence, cigarettes, uncomplicated (4) Substance induced mood disorder Current Visit: Yes Status: Chronic (5) Non-compliance Current Visit: Yes Status: Chronic - Initial Treatment Plan Initial Treatment Plan: Psychoeducation. Sleep hygiene. Detoxification. NA meetings. Groups. Patient declines to be on any psychotropic medication other than formulations necessary for detoxification. Observation.
--- NOTE | 2018-07-24 14:29 | PN ---
BHS COWS - Scale Resting Pulse: 0= [place] 80 or Below Sweatin= Chills/Flushing Restless Observation: 0= Sits Still Pupil Size: 1= Pupils >than Normal Bone or Joint Aches: 1= Mild Discomfort Runny Nose/ Eye Tearin= Nasal Congestion GI Upset > 30mins: 1= Stomach Cramp Tremor Observation of Outstretched Hands: 2= Slight Tremor Visible Yawning Observation: 2= >3x During Session Anxiety or Irritability: 2=Irritable/Anxious Goose Flesh Skin: 0=Smooth Skin COWS Score: 11 S Progress Note (SOAP) Subjective: tired, low energy poor concentration Objective: 07/24/18 14:31 Vital Signs Temperature 98.2 F 07/24/18 13:16 Pulse Rate 67 07/24/18 13:16 Respiratory Rate 18 07/24/18 13:16 Blood Pressure 82/52 L 07/24/18 13:16 O2 Sat by Pulse Oximetry (%) Laboratory Last Values WBC 5.6 K/mm3 (4.0-10.0) 07/24/18 07:00 RBC 4.23 M/mm3 (3.60-5.2) 07/24/18 07:00 Hgb 12.3 GM/dL (10.7-15.3) 07/24/18 07:00 Hct 37.0 % (32.4-45.2) 07/24/18 07:00 MCV 87.3 fl (80-96) 07/24/18 07:00 MCH 29.0 pg (25.7-33.7) 07/24/18 07:00 MCHC 33.2 g/dl (32.0-36.0) 07/24/18 07:00 RDW 15.3 % (11.6-15.6) 07/24/18 07:00 Plt Count 230 K/MM3 (134-434) 07/24/18 07:00 MPV 8.6 fl (7.5-11.1) 07/24/18 07:00 Sodium 139 mmol/L (136-145) 07/24/18 07:00 Potassium 4.3 mmol/L (3.5-5.1) 07/24/18 07:00 Chloride 107 mmol/L (98-107) 07/24/18 07:00 Carbon Dioxide 30 mmol/L (21-32) 07/24/18 07:00 Anion Gap 2 MMOL/L (8-16) L 07/24/18 07:00 BUN 17 mg/dL (7-18) 07/24/18 07:00 Creatinine 0.7 mg/dL (0.55-1.3) 07/24/18 07:00 Creat Clearance w eGFR 90.09 (>60) 07/24/18 07:00 Random Glucose 81 mg/dL (74-106) 07/24/18 07:00 Calcium 8.6 mg/dL (8.5-10.1) 07/24/18 07:00 Total Bilirubin 0.3 mg/dL (0.2-1) 07/24/18 07:00 AST 16 U/L (15-37) 07/24/18 07:00 ALT 18 U/L (13-61) 07/24/18 07:00 Alkaline Phosphatase 95 U/L (45-117) 07/24/18 07:00 Total Protein 6.5 g/dl (6.4-8.2) 07/24/18 07:00 Albumin 2.8 g/dl (3.4-5.0) L 07/24/18 07:00 RPR Titer Nonreactive (NONREACTIVE) 07/24/18 07:00 lab noted Assessment: 07/24/18 14:31 opiate withdrawal sx Plan: continue detox
[2018-07-24] MEDS: diazePAM 5 MG TABLET PO PRN (22:20)
[2018-07-24] MEDS: THIAMINE HCL 100 MG TABLET (FP) PO SCH (22:20)
[2018-07-25] MEDS ORDERED: METHADONE HCL 10 MG TABLET (FOR DETOX USE ONLY) PO ONE (10:00)
[2018-07-25] MEDS: NICOTINE 14 MG/24 HOURS TOPICAL PATCH TD SCH (10:14)
[2018-07-25] MEDS: PRENATAL VITAMINS W/ FOLIC ACID TABLET (FP) PO SCH (10:14)
[2018-07-25] MEDS: diazePAM 5 MG TABLET PO PRN ×2 (10:15→22:37)
--- NOTE | 2018-07-25 10:15 | PN ---
BHS COWS - Scale Resting Pulse: 0= [place] 80 or Below Sweatin= Chills/Flushing Restless Observation: 0= Sits Still Pupil Size: 1= Pupils >than Normal Bone or Joint Aches: 1= Mild Discomfort Runny Nose/ Eye Tearin= Nasal Congestion GI Upset > 30mins: 1= Stomach Cramp Tremor Observation of Outstretched Hands: 1= Tremor [place], Not Seen Yawning Observation: 2= >3x During Session Anxiety or Irritability: 1=Feels Anxious/Irritable Goose Flesh Skin: 0=Smooth Skin COWS Score: 9 BHS Progress Note (SOAP) Subjective: low energy tolerate food and fluid well prefer to stay in bed sleeping denies depressive mood but tired Objective: 07/25/18 10:17 Vital Signs Temperature 96.3 F L 07/25/18 09:17 Pulse Rate 61 07/25/18 09:17 Respiratory Rate 18 07/25/18 09:17 Blood Pressure 143/93 07/25/18 09:17 O2 Sat by Pulse Oximetry (%) Laboratory Last Values WBC 5.6 K/mm3 (4.0-10.0) 07/24/18 07:00 RBC 4.23 M/mm3 (3.60-5.2) 07/24/18 07:00 Hgb 12.3 GM/dL (10.7-15.3) 07/24/18 07:00 Hct 37.0 % (32.4-45.2) 07/24/18 07:00 MCV 87.3 fl (80-96) 07/24/18 07:00 MCH 29.0 pg (25.7-33.7) 07/24/18 07:00 MCHC 33.2 g/dl (32.0-36.0) 07/24/18 07:00 RDW 15.3 % (11.6-15.6) 07/24/18 07:00 Plt Count 230 K/MM3 (134-434) 07/24/18 07:00 MPV 8.6 fl (7.5-11.1) 07/24/18 07:00 Sodium 139 mmol/L (136-145) 07/24/18 07:00 Potassium 4.3 mmol/L (3.5-5.1) 07/24/18 07:00 Chloride 107 mmol/L (98-107) 07/24/18 07:00 Carbon Dioxide 30 mmol/L (21-32) 07/24/18 07:00 Anion Gap 2 MMOL/L (8-16) L 07/24/18 07:00 BUN 17 mg/dL (7-18) 07/24/18 07:00 Creatinine 0.7 mg/dL (0.55-1.3) 07/24/18 07:00 Creat Clearance w eGFR 90.09 (>60) 07/24/18 07:00 Random Glucose 81 mg/dL (74-106) 07/24/18 07:00 Calcium 8.6 mg/dL (8.5-10.1) 07/24/18 07:00 Total Bilirubin 0.3 mg/dL (0.2-1) 07/24/18 07:00 AST 16 U/L (15-37) 07/24/18 07:00 ALT 18 U/L (13-61) 07/24/18 07:00 Alkaline Phosphatase 95 U/L (45-117) 07/24/18 07:00 Total Protein 6.5 g/dl (6.4-8.2) 07/24/18 07:00 Albumin 2.8 g/dl (3.4-5.0) L 07/24/18 07:00 RPR Titer Nonreactive (NONREACTIVE) 07/24/18 07:00 lab noted Assessment: 07/25/18 10:17 opiate withdrawal sx Plan: continue detox
[2018-07-25] MEDS: THIAMINE HCL 100 MG TABLET (FP) PO SCH (22:37)
[2018-07-25] MEDS: MELATONIN 5 MG TABLETS PO PRN (22:37)
[2018-07-26] MEDS ORDERED: METHADONE HCL 10 MG TABLET (FOR DETOX USE ONLY) PO ONE (10:00)
[2018-07-26] MEDS: diazePAM 5 MG TABLET PO PRN (10:36)
[2018-07-26] MEDS: NICOTINE 14 MG/24 HOURS TOPICAL PATCH TD SCH (10:36)
[2018-07-26] MEDS: PRENATAL VITAMINS W/ FOLIC ACID TABLET (FP) PO SCH (10:36)
[2018-07-26] MEDS ORDERED: ALBUTEROL SO4 0.083% IH SOL 2.5 MG/3 ML VIAL.NEB. NEB PRN (11:57)
--- NOTE | 2018-07-26 12:05 | PN ---
BHS COWS - Scale Resting Pulse: 0= [place] 80 or Below Sweatin= Chills/Flushing Restless Observation: 0= Sits Still Pupil Size: 0= Normal to Room Light Bone or Joint Aches: 1= Mild Discomfort Runny Nose/ Eye Tearin= Nasal Congestion GI Upset > 30mins: 1= Stomach Cramp Tremor Observation of Outstretched Hands: 0= None Yawning Observation: 0= None Anxiety or Irritability: 1=Feels Anxious/Irritable Goose Flesh Skin: 0=Smooth Skin COWS Score: 5 BHS Progress Note (SOAP) Subjective: long history of asthma reporting chronic coughing x "months" temp 97.5 breathing no exertions wheezing on right lower lobe skin warm moist Objective: 07/26/18 12:04 Vital Signs Temperature 97.0 F L 07/26/18 09:47 Pulse Rate 69 07/26/18 09:47 Respiratory Rate 18 07/26/18 09:47 Blood Pressure 138/77 07/26/18 09:47 O2 Sat by Pulse Oximetry (%) Laboratory Last Values WBC 5.6 K/mm3 (4.0-10.0) 07/24/18 07:00 RBC 4.23 M/mm3 (3.60-5.2) 07/24/18 07:00 Hgb 12.3 GM/dL (10.7-15.3) 07/24/18 07:00 Hct 37.0 % (32.4-45.2) 07/24/18 07:00 MCV 87.3 fl (80-96) 07/24/18 07:00 MCH 29.0 pg (25.7-33.7) 07/24/18 07:00 MCHC 33.2 g/dl (32.0-36.0) 07/24/18 07:00 RDW 15.3 % (11.6-15.6) 07/24/18 07:00 Plt Count 230 K/MM3 (134-434) 07/24/18 07:00 MPV 8.6 fl (7.5-11.1) 07/24/18 07:00 Sodium 139 mmol/L (136-145) 07/24/18 07:00 Potassium 4.3 mmol/L (3.5-5.1) 07/24/18 07:00 Chloride 107 mmol/L (98-107) 07/24/18 07:00 Carbon Dioxide 30 mmol/L (21-32) 07/24/18 07:00 Anion Gap 2 MMOL/L (8-16) L 07/24/18 07:00 BUN 17 mg/dL (7-18) 07/24/18 07:00 Creatinine 0.7 mg/dL (0.55-1.3) 07/24/18 07:00 Creat Clearance w eGFR 90.09 (>60) 07/24/18 07:00 Random Glucose 81 mg/dL (74-106) 07/24/18 07:00 Calcium 8.6 mg/dL (8.5-10.1) 07/24/18 07:00 Total Bilirubin 0.3 mg/dL (0.2-1) 07/24/18 07:00 AST 16 U/L (15-37) 07/24/18 07:00 ALT 18 U/L (13-61) 07/24/18 07:00 Alkaline Phosphatase 95 U/L (45-117) 07/24/18 07:00 Total Protein 6.5 g/dl (6.4-8.2) 07/24/18 07:00 Albumin 2.8 g/dl (3.4-5.0) L 07/24/18 07:00 RPR Titer Nonreactive (NONREACTIVE) 07/24/18 07:00 lab noted Assessment: 07/26/18 12:04 mild opiate withdrawal sx 07/26/18 12:06 Plan: continue detox
[2018-07-26] MEDS ORDERED: CLINDAMYCIN HCL 150 MG CAPSULE (FP) PO SCH (14:00)
--- NOTE | 2018-07-26 18:12 | PN ---
S Progress Note Note: Vital Signs Temperature 96.0 F L 07/26/18 13:49 Pulse Rate 70 07/26/18 13:49 Respiratory Rate 18 07/26/18 13:49 Blood Pressure 130/84 07/26/18 13:49 O2 Sat by Pulse Oximetry (%) Supervisor Unloading was informed by RN on the unit, patient was involved in a verbal altercation with one of her peers and walked off the unit.
--- NOTE | 2018-07-26 18:15 | DS ---
[facility] Detox Discharge Summary Admission Date: 07/23/18 Discharge Date: 07/26/18 - History Present History: Opioid Dependence Additional Comments: Patient left AMA and walked off the unit. - Physical Exam Results Vital Signs: Vital Signs Temperature 96.0 F L 07/26/18 13:49 Pulse Rate 70 07/26/18 13:49 Respiratory Rate 18 07/26/18 13:49 Blood Pressure 130/84 07/26/18 13:49 O2 Sat by Pulse Oximetry (%) - Medication Discharge Medications: Ambulatory Orders Quetiapine Fumarate [Seroquel] 100 mg PO HS #30 tablet 06/04/17 Alprazolam [Xanax] 2 mg PO DAILY 07/23/18 Albuterol Sulfate Inhaler - [Ventolin HFA Inhaler -] 2 inh PO Q4H PRN #1 inhaler 07/26/18 - Diagnosis (1) Opioid dependence with withdrawal Current Visit: Yes Status: Acute (2) Asthma Current Visit: Yes Status: Chronic Qualifiers: Asthma severity: mild Asthma complication type: with status asthmaticus (3) HTN (hypertension) Current Visit: Yes Status: Chronic Qualifiers: Hypertension type: essential hypertension Qualified Code(s): I10 - Essential (primary) hypertension (4) Nicotine dependence Current Visit: Yes Status: Chronic Qualifiers: Nicotine product type: cigarettes Substance use status: uncomplicated Qualified Code(s): F17.210 - Nicotine dependence, cigarettes, uncomplicated - AMA Did Patient Leave Against Medical Advice: Yes
[2018-07-26 18:18] VITALS: BP 121/79; PULSE 65; TEMP 98.4
[2018-07-27] MEDS ORDERED: METHADONE HCL 5 MG TABLET (FOR DETOX USE ONLY) PO ONE (06:00)
== END 2018-07-26 17:36 | disposition left against medical advice (07) | DRG 770 ==
LOC: YASAS 17:36 → Y3N 20:48
PROVIDERS: ADMIT Surgery; ATTEND Surgery
PROC: HZ2ZZZZ Detoxification Services for Substance Abuse Treatment (ICD-10-PCS; principal; 2018-07-23)
DX: F11.23 Opioid dependence with withdrawal (principal); F14.20 Cocaine dependence, uncomplicated; F17.210 Nicotine dependence, cigarettes, uncomplicated; F19.24 Other psychoactive substance dependence with psychoactive substance-induced mood disorder; I10 Essential (primary) hypertension; J45.22 Mild intermittent asthma with status asthmaticus; Z91.5 Personal history of self-harm; Z91.19 Patient's noncompliance with other medical treatment and regimen; Z88.0 Allergy status to penicillin; Z98.82 Breast implant status
CPT/HCPCS: 36415; 80053; 85027; 86593; 93005; 93010